=== PATIENT | female | born 1985 | race Caucasian/White ===

== ENCOUNTER 2025-06-06 16:06 | Emergency (ER) | payer OTHER, SELFPAY ==
[2025-06-06] VITALS (7 sets, daily range): BP systolic 122–150; BP diastolic 66–102; PULSE 78–97; RESP 16–18; TEMP 36.7–36.8; O2SAT 97–100; BMI 43.2
--- NOTE | 2025-06-06 16:20 | RAD_ITS ---
PROCEDURE: CHEST 1 VIEW (PORTABLE) 06/06/2025 REASON FOR EXAM: CHEST PAIN TECHNIQUE: Frontal view of the chest. COMPARISON: None available. FINDINGS: Hardware: None Heart: The heart size is normal. Lungs: The lungs are clear. No pneumothorax or pleural effusion. Bones: The bones are unremarkable. RAD/Chest 1 View (Portable) IMPRESSION: No Acute Findings. Reading [facility]
--- NOTE | 2025-06-06 16:20 | EKG12_ITS ---
Test Reason : CHEST PAIN Blood Pressure : */* mmHG Vent. Rate : 93 BPM Atrial Rate : 93 BPM P-R Int : 138 ms QRS Dur : 86 ms QT Int : 368 ms P-R-T Axes : 38 47 47 degrees QTcB Int : 457 ms Sinus rhythm with Premature supraventricular complexes Otherwise normal ECG Confirmed by MOHSEN GASTON, RENEE ([id number]), film editor RANDOLPH ADAMS ([id number]) on 06/08/2025 9:12:56 AM Referred By: Confirmed By: RENEE CONNOLLY MD
--- NOTE | 2025-06-06 16:21 | EDS_ITS ---
HPI History of Present Illness Chief Complaint: Chest Pain Informant: patient Onset/Context/Timing Onset: Hours (4) Activity at onset: gradual Timing: Continuous Quality: Positive for Sharp Location: Substernal, Right Parasternal and Right Chest Worsened By: Exertion Relieved By: Nothing Associated Symptoms: Positive for Nausea, Dyspnea and Lightheadedness; Negative for Vomiting, Diaphoresis, Cough, Fever, Acid Reflux or Palpitations Narrative Narrative: Patient presents with chest pain that began today. Patient states that it began approximately 4 hours prior to arrival. Patient states it is worse with any exertion. Patient states the pain is over the substernal area and right chest. Patient describes it as sharp. Patient states it has been constant. Patient admits to some nausea but denies any vomiting or diarrhea. Patient admits to some shortness of breath and dizziness. The patient denies any cough or fever. Patient denies any palpitations. CVD Risk Factors: Negative for Hypertension, Diabetes, Hypercholesterolemia, Family History 1' </=55 or Smoking PE Risk Factors: Negative for Recent Travel/Surgery, Recent Immobilization, Prior DVT or PE, Cancer or OCP + Smoking + >/=35 PFSH PFSH Medical History Thyroid disease Allergy/AdvReac Type Severity Reaction Status Date / Time No Known Allergies Allergy Verified 06/06/25 16:08 Surgical History no surgical history no surgical history Social History Smoking Status: Former smoker ROS ROS ED Constitutional Constitutional ED: Denies chills or fever(s) Eyes Eyes: Denies blurry vision or change in vision ENT ENT ED: Denies rhinorrhea or sore throat Cardiovascular Cardiovascular: Reports chest pain; Denies palpitations Respiratory/Chest Respiratory/Chest: Reports dyspnea; Denies cough Gastrointestinal Gastrointestinal: Denies abdominal pain, nausea or vomiting Genitourinary Genitourinary ED: Reports urinary frequency; Denies dysuria or hematuria Musculoskeletal Musculoskeletal: Reports back pain; Denies neck pain Integumentary Denies abscess or rash Neurologic Neurologic: Denies headache(s) or weakness Allergic/Immunologic Allergic/Immunologic ED: Denies mouth swelling or urticaria EXAM Physical Exam Const Vital Signs: 06/06/25 16:08 06/06/25 16:36 06/06/25 16:42 Temperature 98.3 F Temperature Source Oral Pulse Rate 96 97 Respiratory Rate 18 Blood Pressure 150/102 H 144/82 H Blood Pressure Mean 118 Pulse Ox 97 100 Oxygen Delivery Method Room Air Room Air 06/06/25 16:55 06/06/25 18:00 06/06/25 19:00 Temperature Temperature Source Pulse Rate 90 89 85 Respiratory Rate 16 16 16 Blood Pressure 144/82 H 129/77 H 122/66 H Blood Pressure Mean 102 94 84 Pulse Ox 98 98 97 Oxygen Delivery Method Room Air Room Air Room Air Positive well nourished and well developed Constitutional Narrative: BMI is 43.3. General Appearance ED: well developed and NAD HEENT Reports moist mucous membranes Neck supple and no JVD Chest Wall palpation of chest normal Resp normal respiratory effort and clear to auscultation bilaterally Cardio regular rate and regular rhythm GI soft to palpation, non-tender and non-distended Extremity normal to inspection General Extremety ED: Negative for edema or tenderness General Extremity: Negative for edema Neuro oriented x3, CN's II-XII intact bilaterally and no sensory deficits noted Sensorium / Orientation: awake and alert Motor Exam: strength 5/5 throughout Psych mental status grossly normal Heart Score History: Slightly/Non-Suspicious ECG: Normal Age: </= 45 years Risk Factors: No Risk Factors Troponin: </= Normal Limit Score: 0 MDM MDM MDM Narrative Medical decision making narrative: Differential diagnosis includes cardiac dysrhythmia, cardiac ischemia, pne umonia, bronchitis, pulmonary embolism, musculoskeletal pain, hyperthyroidism, gastroesophageal reflux disease, and anxiety. EKG will be obtained to assess for cardiac dysrhythmia and cardiac ischemia. Chest x-ray will be obtained to assess for pneumonia or bronchitis. CBC will be obtained to assess for leukocytosis and anemia. Basic metabolic profile will be obtained to assess for electrolyte abnormality and renal function. High-sensitivity troponin will be obtained to assess for cardiac ischemia. 2-hour repeat high-sensitivity troponin will be obtained to assess for ongoing cardiac ischemia. D-dimer will be obtained to assess for pulmonary embolism. TSH will be obtained to assess for hypothyroidism. Lab Data Attestation: I reviewed the patient's lab results. Lab results narrative: CBC was reviewed. There is a slight leukocytosis of 11.2. The remainder is within normal limits. Basic metabolic profile was reviewed and was essentially within normal limits. Initial high-sensitivity troponin was reviewed and was less than 6. 2-hour repeat high-sensitivity troponin was reviewed and was less than 6. TSH was reviewed and was normal at 1.33. D-dimer was reviewed and was slightly elevated at 0.61. Labs: Laboratory Results - last 24 hr 06/06/25 06/06/25 16:40 18:30 WBC 11.2 H RBC 4.34 Hgb 12.4 Hct 36.1 L MCV 83.2 MCH 28.6 MCHC 34.3 RDW Std Deviation 41.0 RDW Coeff of Renata 13.4 Plt Count 265 MPV 9.5 Immature Gran % (Auto) 0.400 Neut % (Auto) 65.7 Lymph % (Auto) 22.2 Graham % (Auto) 8.3 Eos % (Auto) 2.9 Baso % (Auto) 0.5 Absolute Neuts (auto) 7.4 Absolute Lymphs (auto) 2.49 Nucleated RBC % 0 D-Dimer Quant (PE/DVT) 0.61 H* Sodium 142 Potassium 3.8 Chloride 106 Carbon Dioxide 25.3 Anion Gap 11 BUN 19 Creatinine 0.67 L Estim Creat Clear Calc 141.95 Est GFR (MDRD) Non-Af 112 BUN/Creatinine Ratio 28.1 H Glucose 111 H Calcium 9.5 Troponin T High Sens < 6 Troponin T Hi Sens 2 Hr < 6 TSH 1.330 Radiography Chest X-Ray - ED: 1 View, Read by ED Physician, Read by Radiologist and No Acute Disease Diagnostic Testing: Clinical Impression(s) from Imaging Studies Chest X-Ray 06/06/25 16:20 IMPRESSION: No Acute Findings. Reading Location: [facility] Chest CTA 06/06/25 17:35 IMPRESSION: No acute abnormality Reading [facility] Portable 1 view chest x-ray was obtained. On my independent interpretation, lung jiménez are clear. There is normal cardiac silhouette. Bony thorax is normal. There is no acute process noted. Radiologist also interpreted the x- ray and agrees. Because of the elevated D-dimer, CTA of the chest was obtained. There is no evidence of pulmonary embolism or aortic dissection. This was interpreted by the radiologist. I also independently reviewed the CT images and did not see any evidence of pulmonary embolism or aortic dissection. EKG Initial EKG: Attestation: I personally reviewed and interpreted this EKG as follows: Interpretation: Sinus Rhythm (93) and No Acute Injury Pattern Comments: EKG was obtained. On my independent interpretation, it showed a normal sinus rhythm with occasional PACs with a rate of 93. HI interval, QRS interval, and QTc intervals were all normal. [place] was normal. There are no acute ST or T wave changes. Prior EKG tracings: not available for review Prior: No Prior Treatment and Re-Evaluation :: Patient was given aspirin. Patient was feeling better on reevaluation. Patient was advised of her findings. Patient has a HEART score of 0. Patient was advised that this is low risk for acute cardiac event. Patient was advised that this could be musculoskeletal in etiology. Patient was instructed to follow-up with her primary care physician in 5 to 7 days. Patient understood and was agreeable with the plan. All questions were answered. Discharge Plan Triage Chief Complaint: Chest Pain ED Provider: Luis Magana Dx/Rx/DC Orders Clinical Impression: Chest pain, Elevated blood pressure reading without diagnosis of hypertension Instructions: ED Chest Pain, Uncertain Cause Primary Care Provider: Care Physician,No Primary Referrals: Manny Navarro MD [Outside] - 5-7 Days Care Physician,No Primary [Primary Care Provider, Medical] Print Language: Chadian Disposition Disposition: Home, Self Care
[2025-06-06] MEDS: Nitroglycerin SL (ED/IMG/CATH) 0.4 MG TABLET SL (16:42)
[2025-06-06 17:08] LABS: Hematocrit 36.1 % (37-47); Hemoglobin 12.4 g/dL (12.0-15.0); Immature Granulocytes Count 0.040 X10^3/uL (0.0-0.0); Mean Corp Hgb Conc 34.3 g/dL (32-36); Mean Corpuscular Volume 83.2 fL (81-99); Mean Platelet Vol. 9.5 fl (6.2-12.0); NRBC Flagged by Analyzer 0 % (0-5); Platelet Count 265 K/mm3 (150-450); RBC Distribution Width CV 13.4 % (11.6-14.6); RBC Distribution Width SD 41.0 fl (35.1-43.9); Red Blood Count 4.34 M/mm3 (4.2-5.4); White Blood Count 11.2 K/mm3 (4.4-11.0)
[2025-06-06 17:32] LABS: D-Dimer Quantitative (DVT/PE) 0.61 FEU/ug/m (0.27-0.49)
--- NOTE | 2025-06-06 17:35 | CT_ITS ---
PROCEDURE: CTA CHEST W/WO CONTRAST 06/06/2025 REASON FOR EXAM: ELEVATED D-DIMER TECHNIQUE: Procedure Code: [id number] Modality: CT Procedure: CTA CHEST W/WO CONTRAST Multiplanar Sagittal and Coronal images were obtained. 3D reconstructions CONTRAST: Isovue 370 VOLUME: 100 mL One or more dose reduction techniques were used (e.g., Automated exposure control, adjustment of the mA and/or kV according to patient size, use of iterative reconstruction technique). RADIATION DOSE SUMMARY: CTDlvol: 22 mGy DLP: 515 mGycm FINDINGS: Inspection of the lung parenchyma demonstrates no mass. No consolidation. No nodule. No consolidation. No fibrosis. No edema. Normal thoracic aorta. No pericardial fluid. No coronary artery calcification. The pulmonary artery contrast bolus is adequate and there are no visible pulmonary emboli. There is no thoracic compression deformity and no sternal disruption CT/CTA Chest W/WO Contrast IMPRESSION: No acute abnormality Reading [facility]
[2025-06-06 17:36] LABS: Troponin T High Sensitivity < 6 ng/L (<=14)
[2025-06-06 17:51] LABS: Anion Gap 11 (5-15); BUN 19 mg/dL (4-19); BUN/Creat Ratio 28.1 RATIO (10-20); Calcium,Total 9.5 mg/dL (7.6-11.0); Carbon Dioxide 25.3 mmol/L (21.0-32.0); Chloride 106 mmol/L (98-108); Estimated Creatinine Clearance 141.95 ml/min (50-250); Glucose 111 mg/dL (70-99); Potassium 3.8 mmol/L (3.3-5.1)
[2025-06-06 19:08] LABS: Troponin T High Sens 2 HR < 6 ng/L (<=14)
== END 2025-06-06 20:05 | disposition home or self-care (01) ==
PROVIDERS: Emergency Provider Emergency Medicine; Visit Provider Emergency Medicine
DX: R07.89 Other chest pain (principal); R11.0 Nausea; R03.0 Elevated blood-pressure reading, without diagnosis of hypertension; R06.02 Shortness of breath; R42 Dizziness and giddiness; I49.1 Atrial premature depolarization; Z87.891 Personal history of nicotine dependence
CPT/HCPCS: 71045; 71275; 80048; 84443; 84484; 85025; 85379; 93005; 99285; Q9967; A4216